=== PATIENT | male | born 1960 | race African-American/Black ===

== ENCOUNTER 2022-11-03 23:33 | Emergency (ER) | payer OTHER ==
[~2022-11-03] VITALS: Ht 182.9 cm; Wt 150.0 kg
[2022-11-03 23:40] VITALS: O2SAT 97
[2022-11-04 01:14] LABS: BASOPHILS % 0.9 % (0.0-2.0); EOSINOPHILS % 3.7 % (0.0-5.0); HEMATOCRIT. 36.4 % (42.0-52.0); LYMPHOCYTES % 24.7 % (20.0-50.0); MEAN CORPUSCULAR HEMOGLOBIN 29.6 pg (28.0-32.0); MEAN CORPUSCULAR HGB CONC 33.1 g/dL (31.0-37.0); MEAN CORPUSCULAR VOLUME 89.5 fL (80.0-94.0); MEAN PLATELET VOLUME 8.4 fl (7.4-10.4); MONOCYTES % 11.2 % (2.0-8.0); NEUTROPHILS % 59.5 % (40.0-76.0); PLATELET 186 x1000/uL (130-400); RED BLOOD CELL COUNT 4.07 mill/uL (4.7-6.1); RED CELL DISTRIBUTION WIDTH 13.4 % (11.6-14.6); WHITE BLOOD COUNT 5.4 x1000/uL (4.5-11.0)
[2022-11-04 01:21] LABS: CHLORIDE 108 mEq/L (98-107); INDEX HEMOLYSI 1 (1-3); INDEX ICTERIC 1 (1-4); INDEX LIPEMIC 1 (1-3); POTASSIUM 3.8 mEq/L (3.5-5.1); SODIUM 137 mEq/L (136-145)
[2022-11-04 01:32] LABS: ALANINE AMINOTRANSFERASE 18 IU/L (13-61); ALBUMIN 3.3 g/dL (3.4-5.0); ASPARTATE AMINOTRANSFERASE 13 IU/L (15-37); BILIRUBIN TOTAL 0.5 mg/dL (0.1-1.0); CALCIUM 7.9 mg/dL (8.5-10.1); CARBON DIOXIDE 26 mEq/L (21-32); CREATININE 1.1 mg/dL (0.6-1.3); ETHANOL BLOOD < 10 mg/dL (-10); GLUCOSE 165 mg/dL (70-105); NT PRO B-TYPE NATRIURETIC PEP 46 pg/mL (5-125); PROTEIN TOTAL 7.8 g/dL (6.0-8.3); TROPONIN I HIGH SENSITIVITY 30 ng/L (<78); UREA NITROGEN BLOOD 11 mg/dL (7-21)
[2022-11-04 04:06] VITALS: BP 171/108; PULSE 104; RESP 20; TEMP 97.9
== END 2022-11-04 04:08 | disposition home or self-care (01) ==
LOC: ER 23:33
DX: R00.2 Palpitations (principal); I10 Essential (primary) hypertension; F41.9 Anxiety disorder, unspecified; K21.9 Gastro-esophageal reflux disease without esophagitis; Z85.9 Personal history of malignant neoplasm, unspecified
CPT/HCPCS: 36415; 71045; 80053; 80320; 83880; 84484; 85025; 93005; 99285; G0480